=== PATIENT | female | born 1980 | race Caucasian/White ===

== ENCOUNTER 2017-01-24 07:50 | Inpatient (IN) | payer OTHER ==
--- NOTE | 2017-01-24 08:33 | OBPROG ---
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 Denies rom. + bloody show. + movement. - SVE Dilation (cm): 3 Effacement (%): 50 Station: -2 Current Contraction Pattern: Regular FHR (bpm): 140 FHR Category: 2 Membranes: Intact - Physical Exam General Appearance: WD/WN, alert, no apparent distress Respiratory: chest non-tender, lungs clear, normal breath sounds Cardiac/Chest: regular rate, rhythm Abdomen: normal bowel sounds Membranes: Intact Extremities: normal range of motion, Yonis's sign (negative bilaterally) DTR- Lower Extremities: Knee (R): 1+, Knee (L): 1+ (clonus negative bilaterally) Skin: normal color, warm/dry Neuro/Psych: no motor/sensory deficits, alert, normal mood/affect, oriented x 3 ICD10 Worksheet Patient Problems: Problems Problem Status Onset iol postdates Acute
[2017-01-24] MEDS ORDERED: OLIVE OIL 118 ML BTL MISC PRN (08:35)
[2017-01-24] MEDS ORDERED: TERBUTALINE SULFATE 1 MG/ML VIAL IV PRN (08:35)
[2017-01-24] MEDS ORDERED: OXYTOCIN/RINGERS LACTATE 1,000 ML IV PRN (08:35)
[2017-01-24] MEDS ORDERED: LR 1,000 ML IV PRN (08:35)
[2017-01-24] MEDS ORDERED: LIDOCAINE 1% 30 ML SDV SC PRN (08:35)
[2017-01-24] MEDS ORDERED: EPSOM SALT 454 GM TP PRN (08:35)
[2017-01-24] MEDS ORDERED: OXYTOCIN/RINGERS LACTATE 500 ML IV SCH (09:00)
[2017-01-24 09:16] LABS: % IMMATURE GRANULYOCYTES 0.6 % (0.0-1.1); ABSOLUTE IMMATURE GRANULOCYTES 0.09 10^3/uL (0.00-0.10); ADD DIFF? NO; ADD MORPH? NO; ADD SCAN? NO; ATYPICAL LYMPHOCYTE FLAG 0 (0-99); FRAGMENT RBC FLAG 0 (0-99); HEMATOCRIT 38.7 % (38.0-47.0); HEMOGLOBIN 13.6 g/dL (12.6-16.3); LEFT SHIFT FLG 0 (0-99); LIPEMIA HEMOLYSIS FLAG 90 (0-99); MEAN CELL HEMOGLOBIN CONCENTR. 35.1 g/dL (32.4-36.7); MEAN CELL VOLUME 91.1 fL (81.5-99.8); MEAN PLATELET VOLUME 11.5 fL (8.7-11.7); PLATELET CLUMPS FLAG 10 (0-99); PLATELET COUNT 174 10^3/uL (150-400); RED BLOOD CELL COUNT 4.25 10^6/uL (4.18-5.33)
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
--- NOTE | 2017-01-24 12:22 | OBPROG ---
OBG Progress Note Assessment/Plan: Assessment: cat 1 fhr feeling contractions, cramping denies great pain coping well. Pain of a 4 + bloody show exam 3-4/50/-2 cephalic soft posterior 2h previous pitocin per protocol at 10 mu will wait for a few more hours before recheck and possible arom difficulty placing iv only 2h of routine pitocin family ok with poc Plan:pitocin per protocol consult physician as needed/ several more hours pitocin before rom 01/24/17 08:31 01/24/17 08:33 01/24/17 12:19 Objective: 01/24/17 09:00 Patient ABO/Rh A POSITIVE 01/24/17 09:00 Current Contraction Pattern: Irregular FHR (bpm): 135 FHR Pattern Variability: Moderate FHR Category: 1 Membranes: Intact ICD10 Worksheet Patient Problems: Problems Problem Status Onset iol postdates Acute
[2017-01-24] MEDS ORDERED: OLIVE OIL 118 ML BTL ONE (14:19)
[2017-01-24] MEDS ORDERED: LIDOCAINE 1% 30 ML SDV ONE (14:19)
[2017-01-24] MEDS ORDERED: MISOPROSTOL 200 MCG TAB ONE (14:20)
[2017-01-24] MEDS ORDERED: OXYTOCIN 10 UNIT/ML VIAL ONE (14:20)
[2017-01-24] MEDS ORDERED: TERBUTALINE SULFATE 1 MG/ML VIAL ONE (14:20)
[2017-01-24] MEDS ORDERED: AMMONIA AROMATIC 1 EACH AMP IH ONE (14:20)
--- NOTE | 2017-01-24 16:28 | OBPROG ---
OBG Progress Note Assessment/Plan: Assessment: cat 1 fhr + bloody show exam 5-6/90/-1 cephalic soft mid decrease pitocin from 18mu to 12 mu not much break with contractions greater pain request for epidural for pain relief coping fair Plan:pitocin per protocol epidural for pain relief 01/24/17 08:31 01/24/17 08:33 01/24/17 12:19 01/24/17 16:26 Subjective: request for epidural for pain relief Objective: 01/24/17 09:00 Patient ABO/Rh A POSITIVE 01/24/17 09:00 - SVE Dilation (cm): 5 Effacement (%): 90 Station: -1 Current Contraction Pattern: Regular FHR (bpm): 135 FHR Pattern Variability: Moderate FHR Category: 1 Membranes: Intact ICD10 Worksheet Patient Problems: Problems Problem Status Onset iol postdates Acute
[2017-01-24] MEDS ORDERED: fentaNYL 2MCG/ML/BUP 0.1% RTU 100 ML BAG EP ONE (16:32)
[2017-01-24] MEDS ORDERED: fentaNYL 100 MCG/2 ML INJ ONE (16:32)
[2017-01-24] MEDS ORDERED: PHENYLEPHRINE HCL 100 MCG/ML SYR ONE (16:33)
[2017-01-24] MEDS ORDERED: BUPIVACAINE 0.25% 30 ML SDV ONE (17:00)
--- NOTE | 2017-01-24 17:31 | OBPROG ---
OBG Progress Note Assessment/Plan: Assessment: cat 1 fhr + bloody show exam 10/100/0 cephalic soft mid PITOCIN OFF epidural in place great pain relief coping well now arom clear fluid peanut ball to assist with cephalic descent Plan:expectant management of labor 01/24/17 08:31 01/24/17 08:33 01/24/17 12:19 01/24/17 16:26 01/24/17 17:29 Subjective: Comfortable after the epidural Objective: 01/24/17 09:00 Patient ABO/Rh A POSITIVE 01/24/17 09:00 - SVE Dilation (cm): 10 Effacement (%): 100 Station: 0 Current Contraction Pattern: Regular FHR (bpm): 130 FHR Pattern Variability: Moderate FHR Category: 1 Membranes: AROM Amniotic Fluid Color: Clear ICD10 Worksheet Patient Problems: Problems Problem Status Onset iol postdates Acute
[2017-01-24] MEDS ORDERED: METOCLOPRAMIDE 10 MG/2 ML VIAL IVP PRN (18:04)
[2017-01-24] MEDS ORDERED: NALOXONE HCL 0.4 MG/ML INJ IVP PRN (18:04)
[2017-01-24] MEDS ORDERED: PHENYLEPHRINE HCL 100 MCG/ML SYR IVP PRN (18:04)
[2017-01-24] MEDS ORDERED: ONDANSETRON 4 MG/2 ML VIAL IVP PRN (18:04)
[2017-01-24] MEDS ORDERED: LR 500 ML IV SCH (18:30)
[2017-01-24] MEDS ORDERED: fentaNYL 2MCG/ML/BUP 0.1% RTU 100 ML EP SCH (18:30)
--- NOTE | 2017-01-24 20:53 | OBPROC ---
- Labor and Delivery Onset of Contractions Date: 01/24/17 Onset of Contractions Time: 10:00 Onset of Contractions Type: Induced Rupture of Membranes Date: 01/24/17 Rupture of Membranes Time: 17:21 Rupture of Membranes Type: Artificial Amniotic Fluid Color: Clear Dilation Complete Time: 17:30 Delivery Type: Spontaneous Placenta Delivery Date: 01/24/17 Placenta Delivery Time: 20:05 Episiotomy/Laceration: 2nd Degree, Other (Specify) (bilateral periurethral repair to the left periurethral) Repair: 3-0, Vicryl EBL: 400 Complications: Nuchal Cord, Other (Specify) (x3) - Medications Labor Augmentation/Induction Meds Used: Pitocin Labor Augmentation/Induction Indication: Post Dates Anesthesia: Epidural - Ten Sleep Info Infant A Delivery Date: 01/24/17 Delivery Time: 19:59 Sex of Infant: Male Score (1 Min): 8 Score (5 Min): 9
[2017-01-24] MEDS ORDERED: HYDROCORTISONE 0.5% CREAM TP PRN (20:57)
[2017-01-24] MEDS ORDERED: SIMETHICONE 80 MG TAB CHEW PO PRN (20:57)
[2017-01-24] MEDS ORDERED: HYDROCODONE/APAP 5/325 TAB PO PRN (20:57)
[2017-01-24] MEDS ORDERED: ACETAMINOPHEN 325 MG TAB PO PRN (20:57)
[2017-01-24] MEDS: IBUPROFEN 600 MG TAB PO PRN (21:10)
[2017-01-25 00:54] VITALS: RESP 18
[2017-01-25] MEDS: IBUPROFEN 600 MG TAB PO PRN ×4 (03:02→21:03)
[2017-01-25] MEDS: DOCUSATE SODIUM 100 MG CAP PO PRN ×2 (09:09→20:51)
[2017-01-25 09:11] VITALS: O2SAT 100
--- NOTE | 2017-01-25 09:48 | SOAPPROG ---
SOAP Progress Note Assessment/Plan: Assessment: ppd# 1 s/p breast feeding A+ Plan: routine post care 01/25/17 09:45 Subjective: patient is doing well. pain is well controlled. normal lochia. denies headache and changes in vision. working on breast feeding. voiding without difficulty. Objective: Vital Signs Temp Pulse Resp BP Pulse Ox 36.8 C 98 18 117/70 100 01/25/17 08:00 01/25/17 08:00 01/25/17 08:00 01/25/17 08:00 01/25/17 08:00 Laboratory Results 01/25/17 03:10 01/24/17 01/25/17 01/26/17 05:59 05:59 05:59 Output Total 300 Balance -300 Physical Exam - Physical Exam General Appearance: WD/WN, alert, no apparent distress Respiratory: chest non-tender, lungs clear, normal breath sounds Cardiac/Chest: normal peripheral pulses, regular rate, rhythm Abdomen: normal bowel sounds, non-tender, soft, other (fundus firm and non tender) Skin: normal color, warm/dry Extremities: normal range of motion, non-tender, normal inspection, normal capillary refill Neuro/Psych: no motor/sensory deficits, alert, normal mood/affect, oriented x 3 ICD10 Worksheet Patient Problems: Problems Problem Status Onset iol postdates Acute
[2017-01-26] MEDS: IBUPROFEN 600 MG TAB PO PRN ×2 (03:08→09:52)
[2017-01-26] MEDS: DOCUSATE SODIUM 100 MG CAP PO PRN (09:53)
--- NOTE | 2017-01-26 10:52 | SOAPPROG ---
SOAP Progress Note Assessment/Plan: Assessment: ppd# 2 s/p breast feeding A+ Plan: routine post care 01/26/17 10:49 Subjective: patient is doing well. pain is well controlled. normal lochia. working on breast feeding. denies headache and changes in vision. mood precautions. ready to go home. Objective: Vital Signs Temp Pulse Resp BP Pulse Ox 36.6 C 87 18 113/74 100 01/25/17 20:00 01/25/17 20:00 01/25/17 20:00 01/25/17 20:00 01/25/17 08:00 Laboratory Results 01/25/17 03:10 01/25/17 01/26/17 01/27/17 05:59 05:59 05:59 Output Total 300 Balance -300 Physical Exam - Physical Exam General Appearance: WD/WN, alert, no apparent distress Respiratory: chest non-tender, lungs clear, normal breath sounds Cardiac/Chest: normal peripheral pulses, regular rate, rhythm Abdomen: normal bowel sounds, non-tender, soft, other (fundus firm and non tender) Skin: normal color, warm/dry Extremities: normal range of motion, non-tender, normal inspection, normal capillary refill Neuro/Psych: no motor/sensory deficits, alert, normal mood/affect, oriented x 3 ICD10 Worksheet Patient Problems: Problems Problem Status Onset iol postdates Acute
[2017-01-26 14:29] VITALS: BP 118/84; PULSE 83; TEMP 98.2
== END 2017-01-26 14:00 | disposition home or self-care (01) | DRG 775 ==
LOC: FLD 07:50 → FOB 23:30
PROVIDERS: ADMIT Obstetrics & Gynecology; ATTEND Obstetrics & Gynecology
DX: O70.1 Second degree perineal laceration during delivery (principal); O71.82 Other specified trauma to perineum and vulva; O69.81X0 Labor and delivery complicated by cord around neck, without compression, not applicable or unspecified; O48.0 Post-term pregnancy; Z3A.41 41 weeks gestation of pregnancy; Z37.0 Single live birth
CPT/HCPCS: J2370; J2405; J2590; J3010; J3105

== ENCOUNTER → 2017-01-28 | Outpatient (CLI) | payer OTHER | LOC: FLACT 12:52 | PROVIDERS: ATTEND Advanced Practice Midwife | DX: Z39.1 Encounter for care and examination of lactating mother (principal) | CPT/HCPCS: G0463 ==

== ENCOUNTER → 2018-08-14 | Outpatient (CLI) | payer OTHER | LOC: BRMIMAGING 09:54 | PROVIDERS: ATTEND Registered Nurse | DX: R92.0 Mammographic microcalcification found on diagnostic imaging of breast (principal) | CPT/HCPCS: 76641-PO ==

== ENCOUNTER → 2019-03-08 | Outpatient (CLI) | payer OTHER | LOC: FIMAGING 14:14 ==